=== PATIENT | female | born 1960 | race Caucasian/White ===

== ENCOUNTER → 2023-10-08 | Outpatient (CLI) | payer BC ==
--- NOTE | 2023-10-13 13:10 | MM ---
Reason for Exam: Screening (asymptomatic). Last screening mammogram was performed 12 month(s) ago. Patient History: Menarche at age 9. Patient has no children. Right ovary removed at age 43. Hysterectomy at age 43. Hormonal Contraceptives for 2 months. Risk Values: Haylee 5 year model risk: 2.0%. NCI Lifetime model risk: 7.9%. Prior Study Comparison: 09/04/2022 Bilateral MG 3D screening mammo w/cad, Unknown. Tissue Density: The breasts are almost entirely fatty. Findings: Analyzed By CAD. Right breast: There is no suspicious group of microcalcifications or new suspicious mass. Benign-appearing calcifications right breast. Left breast: There is no suspicious group of microcalcifications or new suspicious mass. Benign-appearing calcifications left breast. Overall Assessment: Benign, BI-RAD 2 Management: Screening Mammogram of both breasts in [address] [facility] will attempt to contact patient to return for supplemental views and ultrasound if indicated. Patient should continue monthly self-breast exams. A clinical breast exam by your physician is recommended on an annual basis. This exam should not preclude additional follow-up of suspicious palpable abnormalities. Note on Haylee scores and lifetime risk: 1. A Haylee score greater than 3% is considered moderate risk. If this is the case, consider specialist referral to assess eligibility for a risk reducing agent. 2. If overall lifetime risk for the development of breast cancer is 20% or higher, the patient may qualify for future screening with alternating mammogram and breast MRI. Electronically signed and approved by: Maninder Doran DO
--- NOTE | 2023-10-25 14:47 | CT ---
EXAMINATION TYPE: CT chest wo con DATE OF EXAM: 10/08/2023 COMPARISON: None HISTORY: 62-year-old female D86.9 H/O SARCOIDOSIS TECHNIQUE: Contiguous axial scanning of the chest without IV contrast. Coronal/sagittal reconstructio ns performed. CT DLP: 253.1mGycm. Automatic exposure control utilized for a dose reduction. FINDINGS: The heart is normal size without pericardial effusion. Aorta normal caliber with conventional arch vessel branching anatomy. Right paratracheal lymph nodes enlarged up to 1.5 cm. Hilar lymph nodes enlarged up to 1.5 cm. Subcarinal node up to 2.2 cm. Prevascular node up to 1.0 cm. Mild to moderate emphysematous change. No consolidation or pleural effusion. No cliff perilymphatic n odularity, dominant groundglass, or suspicious pulmonary nodules are seen. No architectural distortio n or thickening of the bronchovascular bundles at this time. Possible 1.8 cm centrally located pulmonary nodule near the right hilum, axial image 31 versus an enl arged hilar lymph node. Short interval follow-up to reassess. Visualized upper abdomen shows cholecystectomy clips. Bones: There is some facet arthropathy in the upper thoracic spine with degenerative grade 1 anteroli sthesis T1-T2, T2-T3, T3-T4. IMPRESSION: 1. COPD with mild to moderate emphysema. 2. Mediastinal and bilateral hilar adenopathy measuring up to 2.2 cm in keeping with patient's histor y of sarcoidosis. 3. There is a centrally located pulmonary nodule that may measure up to 1.8 cm near the right hilum. Adjacent nonopacified structures limits accurate assessment. Recommend 3-6 month follow-up CT with co ntrast to ensure stability of this finding and exclude a suspicious pulmonary nodule.
== END | disposition home or self-care (01) ==
LOC: RADCTMAIN 09:32
PROVIDERS: ATTEND Family Medicine
DX: Z12.31 Encounter for screening mammogram for malignant neoplasm of breast (principal); J44.9 Chronic obstructive pulmonary disease, unspecified; J43.9 Emphysema, unspecified; R92.313 Mammographic fatty tissue density, bilateral breasts; R91.1 Solitary pulmonary nodule; D86.9 Sarcoidosis, unspecified
CPT/HCPCS: 71250; 77063; 77067

== ENCOUNTER → 2024-01-05 | Outpatient (CLI) | payer BC ==
[2024-01-07 10:21] LABS: Alt. alternata IgE Class CLASS 0; Alternaria alternata IgE <0.10 kU/L (<0.10); Asperg. fumagatus IgE <0.10 kU/L (<0.10); Asperg. fumagatus IgE Class CLASS 0; Bermuda Grass IgE 0.12 kU/L (<0.10); Birch(Com.Silvr) IgE <0.10 kU/L (<0.10); Birch(Com.Silvr) IgE Class CLASS 0; Cat Epith & Dander IgE <0.10 kU/L (<0.10); Cat Epith & Dander IgE Class CLASS 0; Clad herbarum IgE <0.10 kU/L (<0.10); Clad herbarum IgE Class CLASS 0; Cockroach IgE 0.32 kU/L (<0.10); Cottonwood IgE <0.10 kU/L (<0.10); Dermato. Pteronyssinus Class CLASS 0/1; Dermato. farinae IgE 0.67 kU/L (<0.10); Dermato. farinae IgE Class CLASS 1; Dog Dander IgE <0.10 kU/L (<0.10); Elm IgE 0.11 kU/L (<0.10); Maple (Box Elder) IgE <0.10 kU/L (<0.10); Maple (Box Elder) IgE Class CLASS 0; Mountain Cedar IgE 0.12 kU/L (<0.10); Mountain Cedar IgE Class CLASS 0/1; Mouse Urine IgE Class CLASS 0; Mouse Urine Proteins,IgE <0.10 kU/L (<0.10); Nettle IgE 0.11 kU/L (<0.10); Nettle IgE Class CLASS 0/1; Penicillium chrysogenum IgE <0.10 kU/L (<0.10); Penicillium chrysogenum IgE Cl CLASS 0; Rough Marshelder IgE <0.10 kU/L (<0.10); Rough Marshelder IgE Class CLASS 0; Timothy Grass IgE <0.10 kU/L (<0.10); Timothy Grass IgE Class CLASS 0; White Ash IgE Class CLASS 0/1
== END | disposition home or self-care (01) ==
LOC: LABWHC1 15:52
PROVIDERS: ATTEND Otolaryngology
DX: J30.89 Other allergic rhinitis (principal)
CPT/HCPCS: 36415; 82785; 86003

== ENCOUNTER → 2024-02-25 | Outpatient (CLI) | payer BC ==
[2024-02-25 17:25] LABS: African American GFR (CKD) >90 (>60 ml/min/1.73 sqM); Blood Urea Nitrogen 15 mg/dL (7-17); Non-African American GFR(CKD) 83 (>60 ml/min/1.73 sqM)
--- NOTE | 2024-02-25 19:47 | CT ---
EXAMINATION TYPE: CT chest w con DATE OF EXAM: 02/25/2024 6:22 PM COMPARISON: Previous CT chest study dated 10/08/2023. CLINICAL INDICATION: Female, 63 years old with history of J44.9 CHRONIC OBSTRUCTIVE PULMONARY DISEASE , R91.1; PHH, COPD TECHNIQUE: Multiple axial images were obtained through the chest. Sagittal and coronal reformats were created for review. MIP was performed on a separate workstation. Contrast used:100 ml mL of Isovue 300 with IV Contrast (None if empty) CT DLP: 457.40 mGycm, Automated exposure control for dose reduction was used. FINDINGS: Heart size within normal limits. No pericardial effusion. Thoracic aorta without evidence of aneurysm or focal dissection. Main pulmonary artery normal in caliber. Numerous enlarged mediastinal and bila teral hilar lymph nodes. For example, subcarinal mediastinal lymph node measures approximately 21 mm in short access, similar to previous study. Right lower paratracheal lymph node measures 14 mm in bryanna rt axis, essentially unchanged accounting for measurement technique differences compared to prior ryan dy. Largest right hilar node measures 15 mm in short axis, similar to prior study. Previously describ ed possible pulmonary nodule is felt to most likely reflect a mediastinal lymph node (axial image 32) . Largest left hilar node measures 12 mm in short access. Imaging through the lungs indicates no acute focal consolidation. No pleural effusion or pneumothorax . No new suspicious or enlarging pulmonary nodule. Partially visualized upper abdomen demonstrates no acute abnormalities. Gallbladder surgically absent . No acute osseous abnormality. IMPRESSION: 1. Stable CT chest compared to previous study dated 10/08/2023. Numerous nonspecific enlarged mediasti nal and bilateral hilar lymph nodes, not significantly changed from prior study as above. 2. No suspicious pulmonary nodule or pulmonary mass identified. No acute pulmonary pathology. [facility], , 02/25/2024 7:44 PM
== END | disposition home or self-care (01) ==
LOC: RADCTMAIN 16:26
PROVIDERS: ATTEND Internal Medicine Sleep Medicine
DX: J44.9 Chronic obstructive pulmonary disease, unspecified (principal); R91.1 Solitary pulmonary nodule
CPT/HCPCS: 82565; 84520; 71260; 36415; Q9967

== ENCOUNTER → 2024-02-25 | Outpatient (CLI) | payer BC ==
--- NOTE | 2024-02-25 19:29 | CT ---
EXAMINATION TYPE: CT sinus wo con DATE OF EXAM: 02/25/2024 6:21 PM COMPARISON: None available. CLINICAL INDICATION: Female, 63 years old with history of J32.9 CHRONIC MAXILLARY SINUSITIS; , Chroni c maxillary sinusitis. TECHNIQUE: Multiple thin axial images were obtained through the paranasal sinuses without the use of IV contrast. Additional coronal and sagittal reformatted images were submitted for evaluation. CT DLP: 459.10 mGycm, Automated exposure control for dose reduction was used. FINDINGS: Frontal sinuses: Questionable trace mucosal thickening along the floor of the left frontal sinus. Fro ntal sinuses are otherwise patent. Partially opacified frontal recesses right greater than left. Maxillary Sinuses: Normally developed and aerated. Maxillary Infundibula([facility]): Clear, right-sided Alysha cell. Ethmoid sinuses: Normally developed and aerated. Sphenoid sinuses: Normally developed and aerated. No dehiscence of carotid canal. No evidence of opti c nerve dehiscence within the sphenoid sinus. Sphenoethmoidal recesses: Partially opacified on the ri ght and completely opacified on the left. Nasal septum: Leftward nasal septal deviation with osseous spur formation causing mass effect on the adjacent turbinate and narrowing of the nasal canal. Mastoid air cells & middle ears: The air cells are clear. The middle ears are grossly unremarkable. P neumatization of the petrous apices. Modified Soft tissues & Brain: Partially seen without gross abnormality. Globes are intact. Other: No evidence of bony dehiscence of skull base. Lamina papyracea is intact without evidence of remote orbital fracture or orbital prolapse into the e thmoid sinus. IMPRESSION: 1. Paranasal sinus disease as above. Partially opacified frontoethmoidal and sphenoethmoidal recesse s. 2. Leftward nasal septal deviation with osseous spur formation and associated mass effect. [facility], , 02/25/2024 7:26 PM
== END | disposition home or self-care (01) ==
LOC: RADCTMAIN 16:37
PROVIDERS: ATTEND Otolaryngology
DX: J32.0 Chronic maxillary sinusitis (principal); J34.2 Deviated nasal septum; J34.89 Other specified disorders of nose and nasal sinuses
CPT/HCPCS: 70486